=== PATIENT | male | born 1990 | race Two or more races ===

== ENCOUNTER 2023-09-06 11:19 | Emergency (ER) | payer MEDICAID, OTHER ==
[~2023-09-06] VITALS: Ht 170.2 cm; Wt 70.0 kg
[2023-09-06 12:55] VITALS: BP 132/88; PULSE 74; RESP 19; TEMP 97.4; O2SAT 97
== END 2023-09-06 13:01 | disposition home or self-care (01) ==
LOC: EDBD 11:19 → ER 11:27
DX: T81.33XD Disruption of traumatic injury wound repair, subsequent encounter (principal); Y92.89 Other specified places as the place of occurrence of the external cause